=== PATIENT | male | born 1970 | race Caucasian/White ===

== ENCOUNTER 2016-02-13 13:41 | Emergency (ER) | payer SELFPAY ==
[~2016-02-13 13:41] MED LIST: metroNIDAZOLE 500 MG TAB PO SCH
[2016-02-13] MEDS ORDERED: NS 1,000 ML IV ONE (14:34)
[2016-02-13 14:42] LABS: % IMMATURE GRANULYOCYTES 0.3 % (0.0-1.1); ABSOLUTE IMMATURE GRANULOCYTES 0.03 10^3/uL (0.00-0.10); ADD DIFF? NO; ADD MORPH? NO; ADD SCAN? NO; ATYPICAL LYMPHOCYTE FLAG 60 (0-99); FRAGMENT RBC FLAG 0 (0-99); HEMATOCRIT 45.8 % (40.0-51.0); HEMOGLOBIN 16.5 g/dL (13.7-17.5); LEFT SHIFT FLG 0 (0-99); LIPEMIA HEMOLYSIS FLAG 90 (0-99); MEAN CELL HEMOGLOBIN 31.5 pg (27.9-34.1); MEAN CELL VOLUME 87.6 fL (81.5-99.8); MEAN PLATELET VOLUME 9.1 fL (8.7-11.7); PLATELET CLUMPS FLAG 0 (0-99); PLATELET COUNT 327 10^3/uL (150-400); RED BLOOD CELL COUNT 5.23 10^6/uL (4.40-6.38); RED CELL DISTRIBUTION WIDTH 12.9 % (11.5-15.2)
[2016-02-13 14:59] LABS: ANION GAP 16 mEq/L (8-16); CALCIUM 9.8 mg/dL (8.5-10.4); CARBON DIOXIDE 19 mEq/l (22-31); CHLORIDE 109 mEq/L (97-110); CREATININE 1.1 mg/dL (0.7-1.3); GLOMERULAR FILTRATION RATE > 60; GLUCOSE 97 mg/dL (70-100); POTASSIUM 3.5 mEq/L (3.5-5.2); SODIUM 144 mEq/L (134-144)
--- NOTE | 2016-02-13 15:05 | EDPHY ---
HPI/HX/ROS/PE/MDM Narrative: Chief complaint: Nausea, vomiting, diarrhea HPI: 46-year-old male most recently seen in the emergency department on the of last month. Patient was seen by me that visit. At that point he had returned follow-up for sore throat and a neck abscess. Patient had been admitted the day before and was given intravenous antibiotics. She had left against medical advice that day. Patient was given a IV dose of Unasyn and was given a prescription for Augmentin with follow up with [facility] doctor by me. Patient states that he did not follow up with [facility] any did not get the antibiotics filled because he cannot afford them. For the last few days he is having nausea vomiting and multiple episodes of watery diarrhea. He is having some chills but is not taking his temperature at home. Is having a little bit of crampy abdominal pain associated with episodes of vomiting. No chest pain or shortness of breath. States that he cannot keep anything down. Is not taking any medicines at home. He is also not followed up with a primary care physician since his prior presentation. He does state that his throat feels much better. He is not having any difficulty swallowing. He denies any areas of swelling in his neck. 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 ROS: 10 point Review of Systems is negative except as noted in the HPI. Physical exam: Gen: Awake, Alert, No Distress HEENT: Nose: no rhinorrhea Eyes: PERRLA, EOMI Mouth: Moist mucosa Neck: Supple, no JVD Chest: nontender, lungs clear to auscultation Heart: S1, S2 normal, no murmur Abd: Soft, non-tender, no guarding Back: no CVA tenderness, no midline tenderness Ext: no edema, non-tender Skin: no rash Neuro: CN II-XII intact, Sensation grossly intact, Strength 5/5 in bilateral upper and lower extremities ED Course: Multiple loops gas, no obstruction, no constipation. Interpreted by 46-year-old male with symptoms and a history which was very consistent with C diff colitis. He is unable to get outpatient medications. He is mild to moderate symptoms and so according this standard guidelines a 10 day course of metronidazole should be adequate for treatment. He will require close follow- up with the [facility]. We have arranged to get a full 10 day course of metronidazole for him here. If he feels that I oral vancomycin may be indicated but there is no indication for that at this time. I have stressed to the patient that is absolutely imperative that he take his full course of antibiotics and that he follow up with [facility] in a week. If he does not is likely that he will not improved. This could be potentially life-threatening if he continues. - Data Points Laboratory Results: Laboratory Results 02/13/16 14:20 02/13/16 14:20 02/13/16 14:20 WBC 9.93 H 10^3/uL (3.80-9.50) RBC 5.23 10^6/uL (4.40-6.38) Hgb 16.5 g/dL (13.7-17.5) Hct 45.8 % (40.0-51.0) MCV 87.6 fL (81.5-99.8) MCH 31.5 pg (27.9-34.1) MCHC 36.0 g/dL (32.4-36.7) RDW 12.9 % (11.5-15.2) Plt Count 327 10^3/uL (150-400) MPV 9.1 fL (8.7-11.7) Neut % (Auto) 75.3 H % (39.3-74.2) Lymph % (Auto) 14.0 L % (15.0-45.0) Gordon % (Auto) 9.1 % (4.5-13.0) Eos % (Auto) 1.0 % (0.6-7.6) Baso % (Auto) 0.3 % (0.3-1.7) Nucleat RBC Rel Count 0.0 % (0.0-0.2) Absolute Neuts (auto) 7.48 H 10^3/uL (1.70-6.50) Absolute Lymphs (auto) 1.39 10^3/uL (1.00-3.00) Absolute Monos (auto) 0.90 H 10^3/uL (0.30-0.80) Absolute Eos (auto) 0.10 10^3/uL (0.03-0.40) Absolute Basos (auto) 0.03 10^3/uL (0.02-0.10) Absolute Nucleated RBC 0.00 10^3/uL (0-0.01) Immature Gran % 0.3 % (0.0-1.1) Immature Gran # 0.03 10^3/uL (0.00-0.10) Sodium 144 mEq/L (134-144) Potassium 3.5 mEq/L (3.5-5.2) Chloride 109 mEq/L (97-110) Carbon Dioxide 19 L mEq/l (22-31) Anion Gap 16 mEq/L (8-16) BUN 13 mg/dL (7-23) Creatinine 1.1 mg/dL (0.7-1.3) Estimated GFR > 60 Glucose 97 mg/dL (70-100) Calcium 9.8 mg/dL (8.5-10.4) Medications Given: Discontinued Medications Sodium Chloride (Ns) 1,000 mls @ 0 mls/hr IV ONCE ONE PRN Reason: Wide Open Stop: 02/13/16 14:35 Last Admin: 02/13/16 14:35 Dose: 1,000 mls General Time Seen by Provider: 02/13/16 14:53 Initial Vital Signs: Initial Vital Signs Temperature (C) 36.7 C 02/13/16 13:41 Heart Rate 104 H 02/13/16 13:41 Respiratory Rate 17 02/13/16 13:41 Blood Pressure 130/85 H 02/13/16 13:41 O2 Sat (%) 92 02/13/16 13:41 O2 Delivery Mode Room Air Allergies/Adverse Reactions: No Known Allergies Allergy (Verified 02/03/16 00:56) Home Medications: Medication Instructions Recorded metroNIDAZOLE [Flagyl 500 mg (*)] 500 mg PO BID #20 tab 02/13/16 Departure - Departure Disposition: Home, Routine, Self-Care Clinical Impression: C. difficile colitis Condition: Good Instructions: Clostridium Difficile Infection (ED) Additional Instructions: It is absolutely vital that you take your full course of both antibiotics. You must follow up in the [facility] in 3-4 days for re-evaluation. Return to the emergency department for any concerns. Referrals: NONE *PRIMARY CARE P,. [Primary Care Provider] - As per Instructions [facility] [Outside] - As per Instructions Prescriptions: metroNIDAZOLE [Flagyl 500 mg (*)] 500 mg PO BID #20 tab
--- NOTE | 2016-02-13 16:00 | DX ---
Abdomen, One View Clinical indication: Abdominal pain and constipation. Technique: This film was repeated as it was requested as an upright, so a total of 2 supine and 2 upr ight images were obtained without additional charge to the patient. Findings: Bowel gas pattern is normal. No evidence of obstruction. Some radiopaque densities are seen over the left chest. Bones exhibit mild degenerative changes. Impression: No evidence of obstruction or constipation. Case discussed by Dr. Roth with Dr. Romero on February 13, 2016 at 1550 hours.
[2016-02-13 16:44] VITALS: RESP 18; O2SAT 96
[2016-02-13] MEDS ORDERED: PROMETHAZINE HCL 25 MG/ML VIAL ONE (17:37)
[2016-02-13] MEDS ORDERED: PROMETHAZINE HCL 25 MG/ML VIAL IVP ONE (17:48)
[2016-02-13 18:16] VITALS: BP 145/96
[2016-02-13 18:25] VITALS: PULSE 85; TEMP 98.4
== END 2016-02-13 18:22 | disposition home or self-care (01) ==
DX: A04.7 Enterocolitis due to Clostridium difficile (principal)
CPT/HCPCS: 96374; J2550

== ENCOUNTER 2016-07-30 08:49 | Emergency (ER) | payer OTHER ==
[2016-07-30 08:57] VITALS: PULSE 68; RESP 20
--- NOTE | 2016-07-30 09:23 | EDPHY ---
H & P Time Seen by Provider: 07/30/16 09:07 HPI/ROS: CHIEF COMPLAINT: Right foot pain, intermittent shortness of breath HISTORY OF PRESENT ILLNESS: This is a 46-year-old male presenting to the emergency department complaining of right great toe pain status post having heavy wooden Pallet drop on his foot on Tuesday. 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 Denies any chest pain any other complaints REVIEW OF SYSTEMS: Constitutional: No fever, no chills. Eyes: No discharge. No blurred vision ENT: No sore throat. Cardiovascular: No chest pain, no palpitations. Respiratory: No cough, intermittent shortness of breath. Gastrointestinal: No abdominal pain, no vomiting. Genitourinary: No hematuria. Musculoskeletal: No back pain. Right foot pain Skin: No rashes. Neurological: No headache. Smoking Status: Never smoked Physical Exam: General Appearance: Alert and no distress. Eyes: Pupils equal and round no injection. Respiratory: Chest is nontender, lungs are clear to auscultation, nonlabored respiratory effort Cardiac: regular rate and rhythm Gastrointestinal: Abdomen is soft and nontender, no masses, bowel sounds normal. Musculoskeletal: Neck is supple and nontender. Extremities: Right great toe tender on palpation no obvious deformity full range of motion. Positive CMS intact Skin: No rashes or lesions. No pallor no diaphoresis Constitutional: Initial Vital Signs Temperature (C) 36.4 C 07/30/16 08:54 Heart Rate 68 07/30/16 08:54 Respiratory Rate 20 07/30/16 08:54 Blood Pressure 148/95 H 07/30/16 08:54 O2 Sat (%) 99 07/30/16 08:54 O2 Delivery Mode Room Air Allergies/Adverse Reactions: No Known Allergies Allergy (Verified 02/03/16 00:56) Home Medications: Medication Instructions Recorded Albuterol Sulfate [Proair Hfa] 8.5 gm IH Q4-6PRN PRN #0 [email or web address] 07/30/16 predniSONE 20 mg PO BID #10 tablet 07/30/16 Medical Decision Making - Diagnostics Imaging Results: Imaging Impressions Foot X-Ray 07/30/16 09:20 Impression: 1. Soft tissue swelling medial to the head of the first metatarsal. 2. Probably nonacute ossicle, medial to the first metatarsal-phalangeal joint. If there are any old outside x-rays, we would be happy to review them to assess for interval change. ED Course/Re-evaluation: Discussed ED plan of care: X-ray right foot 0950: Discussed x-ray results with patient no acute fractures seen, discussed utilizing a open toe shoe as needed to decrease pressure on right toe 0955: Discharge home---> stable, discussed discharge instructions with patient Differential Diagnosis: Other differential diagnosis considered but not limited to metatarsal fracture, cellulitis, pneumonia and phalanx dislocation Departure - Departure Disposition: Home, Routine, Self-Care Clinical Impression: Cough due to bronchospasm Contusion Qualifiers: Encounter type: initial encounter Contusion area: toe Toe: great toe Damage to nail status: without damage Laterality: right Qualified Code(s): S90.111A - Contusion of right great toe without damage to nail, initial encounter Condition: Good Instructions: Foot Contusion (ED), Bronchospasm (ED) Additional Instructions: 1. Use inhaler as needed 1-2 puffs every 4-6 hours as needed for cough and bronchospasm 2. I would recommend when working in an environment with dust particles always use a mask or properly fit respirator 3. Decrease prolonged pressure on right foot, elevate when you are at home, ice 15 minutes several times a day as needed to help with decreased swelling 4. Follow up with primary care provider as needed Referrals: Aaliyah Paris MD [Primary Care Provider] - As per Instructions Prescriptions: Albuterol Sulfate [Proair Hfa] 8.5 gm IH Q4-6PRN PRN #0 [email or web address] PRN Reason: Cough, Moderate predniSONE 20 mg PO BID #10 tablet
[2016-07-30 10:17] VITALS: BP 150/97; TEMP 97.9; O2SAT 96
== END 2016-07-30 10:17 | disposition home or self-care (01) ==
DX: S90.111A Contusion of right great toe without damage to nail, initial encounter (principal); J98.01 Acute bronchospasm; W20.8XXA Other cause of strike by thrown, projected or falling object, initial encounter; Y92.69 Other specified industrial and construction area as the place of occurrence of the external cause; Y99.0 Civilian activity done for income or pay; Y93.89 Activity, other specified